=== PATIENT | female | born 1960 | race Caucasian/White ===

== ENCOUNTER 2021-12-20 14:21 | Emergency (ER) | payer BC, MEDICAID ==
[~2021-12-20] VITALS: Ht 165.1 cm; Wt 100.0 kg
[2021-12-20 14:57] LABS: BASOPHILS # (AUTO) 0.1 X10'3 (0-0.2); BASOPHILS % (AUTO) 1.2 % (0-1); EOSINOPHILS # (AUTO) 0.4 X10'3 (0-0.9); HEMATOCRIT 41.6 % (35.0-45.0); HEMOGLOBIN 14.6 g/dl (12.0-16.0); LYMPHOCYTES # (AUTO) 1.8 X10'3 (1.1-4.8); LYMPHOCYTES % (AUTO) 23.8 % (21-51); MEAN CORPUSCULAR HEMOGLOBIN 31.2 PG (27.0-31.0); MEAN CORPUSCULAR VOLUME 89.1 FL (78-98); MEAN PLATELET VOLUME 8.3 FL (7.4-10.4); MONOCYTES # (AUTO) 0.5 X10'3 (0-0.9); MONOCYTES % (AUTO) 6.4 % (2-12); NEUTROPHILS # (AUTO) 4.9 X10'3 (1.8-7.7); NEUTROPHILS % (AUTO) 63.6 % (42-75); PLATELET COUNT 204 X10'3 (140-440); RED BLOOD COUNT 4.66 X10'6 (4.20-5.60); RED CELL DISTRIBUTION WIDTH 12.6 % (11.5-14.5); WHITE BLOOD COUNT 7.7 X10'3 (4.5-11.0)
[2021-12-20 15:10] LABS: ALANINE AMINOTRANSFERASE 42 U/L (12-78); ALBUMIN 3.7 G/DL (3.4-5.0); ALBUMIN/GLOBULIN RATIO 1.1 (1.1-1.5); ALKALINE PHOSPHATASE 95 IU/L (46-116); ANION GAP 7 (8-16); ASPARTATE AMINO TRANSFERASE 24 U/L (10-37); BILIRUBIN,TOTAL 0.4 MG/DL (0.1-1.0); BLOOD UREA NITROGEN 17 MG/DL (7-18); CALCIUM 8.8 MG/DL (8.5-10.1); CHLORIDE 103 MMOL/L (99-107); CREATININE 1.42 MG/DL (0.40-0.90); GLUCOSE 220 MG/DL (70-104); LIPASE 107 U/L (73-393); POTASSIUM 4.3 MMOL/L (3.5-5.1); SODIUM 136 MMOL/L (135-145); TOTAL CARBON DIOXIDE 26.5 MMOL/L (24-32); TOTAL PROTEIN 7.1 G/DL (6.4-8.2); eGFR 37 ML/MIN
[2021-12-20] MEDS ORDERED: morphine 4 MG/ML inj SYRINge IM ONE (16:20)
[2021-12-20] MEDS ORDERED: ondansetron 4mg rapidly disintigrating tab PO ONE (16:20)
[2021-12-20 16:25] LABS: CLARITY,URINE CLOUDY (Clear); COLOR,URINE YELLOW (Yellow); GLUCOSE, URINE >=1000 mg/dl (Neg); KETONES,URINE NEGATIVE (Neg); LEUKOCYTE ESTERASE ,URINE SMALL (Neg); NITRITES, URINE POSITIVE (Neg); OCCULT BLOOD,URINE MODERATE (Neg); PH,URINE 5.5 (4.8-8.0); PROTEIN,URINE NEGATIVE (Neg); URINE HCG NEGATIVE (NEG); UROBILINOGEN,URINE 0.2 E.U/dL (0.2-1.0)
[2021-12-20 16:34] LABS: BACTERIA,URINE 4+ /HPF (Neg); MUCUS STRANDS NONE SEEN /LPF (Neg); SQUAMOUS EPITHELIAL CELL,UR MODERATE /LPF (FEW); WBC,URINE TNTC /HPF (0-4)
[2021-12-20 16:35] LABS: WBC CLUMPS,URINE MODERATE /HPF (NEGATIVE)
[2021-12-20 16:43] LABS: UA COLLECTION TYPE NON-SPECIFIED
[2021-12-20 17:49] VITALS: BP 112/56
[2021-12-20] MEDS ORDERED: HYDR-3965 PO (17:58)
[2021-12-20] MEDS ORDERED: ONDA4TAB12 PO (17:58)
[2021-12-20] MEDS ORDERED: AMOX-117 PO (17:58)
== END 2021-12-20 18:23 | disposition home or self-care (01) ==
LOC: ER 14:23
DX: K57.92 Diverticulitis of intestine, part unspecified, without perforation or abscess without bleeding (principal); N30.01 Acute cystitis with hematuria; Z79.899 Other long term (current) drug therapy
CPT/HCPCS: 36415; 74176; 76700; 80053; 81001; 81025; 83690; 85025; 87088; 96372; 99284; J2270; 87077; 87186

== ENCOUNTER 2022-02-11 16:01 | Emergency (ER) | payer BC, MEDICAID ==
[~2022-02-11] VITALS: Ht 165.1 cm; Wt 100.0 kg
[~2022-02-11 16:01] MED LIST: ONDA4TAB12 PO
[2022-02-11 17:32] LABS: URINE HCG NEGATIVE (NEG)
[2022-02-11 17:36] LABS: BASOPHILS # (AUTO) 0.1 X10'3 (0-0.2); BASOPHILS % (AUTO) 1.2 % (0-1); EOSINOPHILS # (AUTO) 0.5 X10'3 (0-0.9); EOSINOPHILS % (AUTO) 5.1 % (0-6); HEMATOCRIT 41.2 % (35.0-45.0); HEMOGLOBIN 14.5 g/dl (12.0-16.0); LYMPHOCYTES # (AUTO) 2.5 X10'3 (1.1-4.8); LYMPHOCYTES % (AUTO) 26.1 % (21-51); MEAN CORPUSCULAR HEMOGLOBIN 31.5 PG (27.0-31.0); MEAN CORPUSCULAR HGB CONC 35.2 g/dL (33.0-36.5); MEAN CORPUSCULAR VOLUME 89.6 FL (78-98); MEAN PLATELET VOLUME 8.5 FL (7.4-10.4); MONOCYTES # (AUTO) 0.7 X10'3 (0-0.9); MONOCYTES % (AUTO) 7.6 % (2-12); NEUTROPHILS # (AUTO) 5.8 X10'3 (1.8-7.7); PLATELET COUNT 247 X10'3 (140-440); RED CELL DISTRIBUTION WIDTH 12.9 % (11.5-14.5); WHITE BLOOD COUNT 9.6 X10'3 (4.5-11.0)
[2022-02-11 17:42] LABS: ALANINE AMINOTRANSFERASE 41 U/L (12-78); ALBUMIN/GLOBULIN RATIO 1.1 (1.1-1.5); ALKALINE PHOSPHATASE 84 IU/L (46-116); ANION GAP 9 (8-16); ASPARTATE AMINO TRANSFERASE 31 U/L (10-37); BILIRUBIN,TOTAL 0.4 MG/DL (0.1-1.0); BLOOD UREA NITROGEN 19 MG/DL (7-18); BUN/CREATININE RATIO 12.8 (6.6-38.0); CALCIUM 9.1 MG/DL (8.5-10.1); CHLORIDE 100 MMOL/L (99-107); CREATININE 1.49 MG/DL (0.40-0.90); GLUCOSE 104 MG/DL (70-104); LIPASE 123 U/L (73-393); SODIUM 137 MMOL/L (135-145); TOTAL CARBON DIOXIDE 28.4 MMOL/L (24-32); TOTAL PROTEIN 7.5 G/DL (6.4-8.2); eGFR 35 ML/MIN
[2022-02-11 17:45] LABS: CLARITY,URINE CLOUDY (Clear); COLOR,URINE YELLOW (Yellow); GLUCOSE, URINE >=1000 mg/dl (Neg); KETONES,URINE NEGATIVE (Neg); LEUKOCYTE ESTERASE ,URINE SMALL (Neg); NITRITES, URINE POSITIVE (Neg); OCCULT BLOOD,URINE SMALL (Neg); PROTEIN,URINE NEGATIVE (Neg); UROBILINOGEN,URINE 0.2 E.U/dL (0.2-1.0)
[2022-02-11 17:55] LABS: UA COLLECTION TYPE NON-SPECIFIED
[2022-02-11 18:08] LABS: BACTERIA,URINE 4+ /HPF (Neg); RBC,URINE 0-2 /HPF (0-2); SQUAMOUS EPITHELIAL CELL,UR MODERATE /LPF (FEW); WBC CLUMPS,URINE MODERATE /HPF (NEGATIVE)
[2022-02-11] MEDS ORDERED: sulfamethoxazole/trimethoprim DS (800/160mg) tablet PO ONE (18:55)
[2022-02-11] MEDS ORDERED: AMOX-117 PO (18:57)
[2022-02-11] MEDS ORDERED: ondansetron 4mg rapidly disintigrating tab PO ONE (19:00)
[2022-02-11] MEDS ORDERED: morphine 4 MG/ML inj SYRINge IM ONE (19:00)
[2022-02-11 19:43] VITALS: BP 122/74
== END 2022-02-11 19:45 | disposition home or self-care (01) ==
LOC: ER 16:01
DX: N39.0 Urinary tract infection, site not specified (principal); K52.9 Noninfective gastroenteritis and colitis, unspecified; R10.31 Right lower quadrant pain; R31.9 Hematuria, unspecified; Z79.2 Long term (current) use of antibiotics; Z79.899 Other long term (current) drug therapy
CPT/HCPCS: 36415; 74176; 80053; 81001; 81025; 83690; 85025; 87088; 96372; 99284; J2270; 87077; 87186

== ENCOUNTER 2022-03-26 15:39 | Emergency (ER) | payer BC, MEDICAID ==
[~2022-03-26] VITALS: Ht 165.1 cm; Wt 100.0 kg
[2022-03-26 16:39] LABS: URINE HCG NEGATIVE (NEG)
[2022-03-26 16:42] LABS: CLARITY,URINE CLOUDY (Clear); COLOR,URINE YELLOW (Yellow); GLUCOSE, URINE >=1000 mg/dl (Neg); KETONES,URINE TRACE mg/dl (Neg); LEUKOCYTE ESTERASE ,URINE NEGATIVE (Neg); NITRITES, URINE NEGATIVE (Neg); OCCULT BLOOD,URINE NEGATIVE (Neg); PH,URINE 5.5 (4.8-8.0); PROTEIN,URINE NEGATIVE (Neg); UROBILINOGEN,URINE 0.2 E.U/dL (0.2-1.0)
[2022-03-26 16:46] LABS: UA COLLECTION TYPE CLN CATCH MIDSTREAM
[2022-03-26 16:47] LABS: BASOPHILS # (AUTO) 0.1 X10'3 (0-0.2); BASOPHILS % (AUTO) 0.8 % (0-1); HEMATOCRIT 46.3 % (35.0-45.0); MEAN PLATELET VOLUME 8.9 FL (7.4-10.4)
[2022-03-26 16:48] LABS: EOSINOPHILS # (AUTO) 0.3 X10'3 (0-0.9); EOSINOPHILS % (AUTO) 1.9 % (0-6); LYMPHOCYTES # (AUTO) 3.5 X10'3 (1.1-4.8); LYMPHOCYTES % (AUTO) 22.9 % (21-51); MEAN CORPUSCULAR HEMOGLOBIN 31.1 PG (27.0-31.0); MEAN CORPUSCULAR HGB CONC 34.5 g/dL (33.0-36.5); MONOCYTES # (AUTO) 1.2 X10'3 (0-0.9); MONOCYTES % (AUTO) 8.1 % (2-12); NEUTROPHILS # (AUTO) 10.1 X10'3 (1.8-7.7); NEUTROPHILS % (AUTO) 66.3 % (42-75); PLATELET COUNT 330 X10'3 (140-440); RED BLOOD COUNT 5.15 X10'6 (4.20-5.60); RED CELL DISTRIBUTION WIDTH 12.8 % (11.5-14.5); WHITE BLOOD COUNT 15.2 X10'3 (4.5-11.0)
[2022-03-26 16:49] LABS: SQUAMOUS EPITHELIAL CELL,UR MANY /LPF (FEW)
[2022-03-26 16:50] LABS: ALANINE AMINOTRANSFERASE 54 U/L (12-78); ALBUMIN 4.2 G/DL (3.4-5.0); ALBUMIN/GLOBULIN RATIO 1.2 (1.1-1.5); ALKALINE PHOSPHATASE 95 IU/L (46-116); ANION GAP 12 (8-16); ASPARTATE AMINO TRANSFERASE 42 U/L (10-37); BILIRUBIN,TOTAL 0.5 MG/DL (0.1-1.0); BLOOD UREA NITROGEN 22 MG/DL (7-18); BUN/CREATININE RATIO 12.7 (6.6-38.0); CALCIUM 9.9 MG/DL (8.5-10.1); CHLORIDE 101 MMOL/L (99-107); CREATININE 1.73 MG/DL (0.40-0.90); GLUCOSE 191 MG/DL (70-104); LIPASE 105 U/L (73-393); POTASSIUM 3.7 MMOL/L (3.5-5.1); SODIUM 135 MMOL/L (135-145); TOTAL CARBON DIOXIDE 22.5 MMOL/L (24-32); TOTAL PROTEIN 7.8 G/DL (6.4-8.2); eGFR 30 ML/MIN
[2022-03-26 16:50] LABS: HYALINE CASTS 0-3 /LPF (NEGATIVE); MUCUS STRANDS FEW /LPF (Neg)
[2022-03-26 16:51] LABS: BACTERIA,URINE 2+ /HPF (Neg); RBC,URINE 0-2 /HPF (0-2); WBC,URINE 0-4 /HPF (0-4)
[2022-03-26] MEDS ORDERED: HYDROcodone/acetaminophen 5mg/325mg tablet PO ONE (19:10)
[2022-03-26] MEDS ORDERED: TRAM1TAB7 PO (19:12)
[2022-03-26] MEDS ORDERED: POLY119P2 PO (19:15)
[2022-03-26 19:28] VITALS: BP 132/89
== END 2022-03-26 19:29 | disposition home or self-care (01) ==
LOC: ER 15:40
DX: M54.50 Low back pain, unspecified (principal); K59.00 Constipation, unspecified; E11.9 Type 2 diabetes mellitus without complications; Z87.891 Personal history of nicotine dependence
CPT/HCPCS: 36415; 71045; 76700; 80053; 81001; 81025; 83690; 85025; 99285

== ENCOUNTER 2023-04-01 12:00 | Emergency (ER) | payer BC, MEDICAID ==
[~2023-04-01] VITALS: Ht 165.1 cm; Wt 99.3 kg
[~2023-04-01 12:00] MED LIST changes: +POLY119P2 PO
[2023-04-01] MEDS: oxyCODONE/APAP 5-325mg tablet PO ONE (18:58)
[2023-04-02 00:32] LABS: HEMATOCRIT 40.2 % (35.0-45.0); HEMOGLOBIN 13.9 g/dl (12.0-16.0); MEAN CORPUSCULAR HEMOGLOBIN 31.8 PG (27.0-31.0); MEAN CORPUSCULAR HGB CONC 34.5 g/dL (33.0-36.5); MEAN CORPUSCULAR VOLUME 92.2 FL (78-98); PLATELET COUNT 145 X10'3 (140-440); RED BLOOD COUNT 4.36 X10'6 (4.20-5.60); RED CELL DISTRIBUTION WIDTH 12.9 % (11.5-14.5); WHITE BLOOD COUNT 6.5 X10'3 (4.5-11.0)
[2023-04-02 00:33] LABS: BASOPHILS # (AUTO) 0.1 X10'3 (0-0.2); EOSINOPHILS # (AUTO) 0.2 X10'3 (0-0.9); EOSINOPHILS % (AUTO) 2.7 % (0-6); LYMPHOCYTES # (AUTO) 1.6 X10'3 (1.1-4.8); LYMPHOCYTES % (AUTO) 24.2 % (21-51); MEAN PLATELET VOLUME 7.9 FL (7.4-10.4); MONOCYTES # (AUTO) 0.7 X10'3 (0-0.9); MONOCYTES % (AUTO) 10.4 % (2-12); NEUTROPHILS % (AUTO) 61.7 % (42-75)
[2023-04-02] MEDS ORDERED: oxyCODONE/APAP 5-325mg tablet PO ONE ×3 (00:45→01:10)
[2023-04-02 00:50] LABS: ALANINE AMINOTRANSFERASE 50 U/L (12-78); ALBUMIN 3.6 G/DL (3.4-5.0); ALBUMIN/GLOBULIN RATIO 1.1 (1.1-1.5); ALKALINE PHOSPHATASE 63 IU/L (46-116); ANION GAP 9 (8-16); ASPARTATE AMINO TRANSFERASE 34 U/L (10-37); BILIRUBIN,TOTAL 0.8 MG/DL (0.1-1.0); BLOOD UREA NITROGEN 16 MG/DL (7-18); BUN/CREATININE RATIO 11.6 (10.0-20.0); CALCIUM 8.5 MG/DL (8.5-10.1); CHLORIDE 103 MMOL/L (99-107); CREATININE 1.38 MG/DL (0.40-0.90); GLUCOSE 167 MG/DL (70-104); POTASSIUM 3.7 MMOL/L (3.5-5.1); SODIUM 140 MMOL/L (135-145); TOTAL CARBON DIOXIDE 28.1 MMOL/L (24-32); eCRCL 37 ML/MIN; eGFR 38 ML/MIN
[2023-04-02] MEDS: oxyCODONE/APAP 5-325mg tablet PO ONE (01:26)
[2023-04-02 01:34] LABS: BILIRUBIN,URINE NEGATIVE (Neg); CLARITY,URINE CLOUDY (Clear); COLOR,URINE STRAW (Yellow); GLUCOSE, URINE 250 mg/dl (Neg); KETONES,URINE NEGATIVE (Neg); LEUKOCYTE ESTERASE ,URINE SMALL (Neg); NITRITES, URINE POSITIVE (Neg); OCCULT BLOOD,URINE SMALL (Neg); PROTEIN,URINE NEGATIVE (Neg); UROBILINOGEN,URINE 0.2 E.U/dL (0.2-1.0)
[2023-04-02 01:45] LABS: UA COLLECTION TYPE CLN CATCH MIDSTREAM
[2023-04-02 02:09] LABS: SQUAMOUS EPITHELIAL CELL,UR MANY /LPF (FEW)
[2023-04-02 02:10] LABS: BACTERIA,URINE 3+ /HPF (Neg); WBC,URINE 50-100 /HPF (0-4)
[2023-04-02 02:58] LABS: APTT 29 SECONDS (22-32); PROTHROMBIN TIME 10.9 SECONDS (9.0-12.0)
[2023-04-02 04:04] VITALS: TEMP 98.6
[2023-04-02] MEDS: morphine 2 MG/ML inj. syringe IV PRN (07:27)
[2023-04-02] MEDS: levetiracetam inj 1,000 MG in normal saline 100ml IV soln 100 ML IV ONE (08:15)
[2023-04-02] MEDS: oxyCODONE IR 5mg (immed. release) tablet PO ONE (13:31)
[2023-04-02] MEDS ORDERED: LEVO250T74 PO (14:54)
[2023-04-02 15:45] VITALS: BP 117/72; PULSE 79; RESP 16; O2SAT 95
== END 2023-04-02 15:45 | disposition home or self-care (01) ==
LOC: ER 12:00
DX: S06.0X0A Concussion without loss of consciousness, initial encounter (principal); S00.01XA Abrasion of scalp, initial encounter; N39.0 Urinary tract infection, site not specified; E11.9 Type 2 diabetes mellitus without complications; R79.1 Abnormal coagulation profile; Z79.2 Long term (current) use of antibiotics; Z79.899 Other long term (current) drug therapy; W19.XXXA Unspecified fall, initial encounter; Y93.89 Activity, other specified; Y92.89 Other specified places as the place of occurrence of the external cause; Y99.8 Other external cause status
CPT/HCPCS: 36415; 70450; 72125; 73030; 73610; 80053; 81001; 82948; 84484; 85025; 85610; 85730; 96365; 96375; 99291; J1953; J2270; J3490

== ENCOUNTER 2024-01-04 12:52 | Emergency (ER) | payer BC, MEDICAID ==
[~2024-01-04] VITALS: Ht 165.1 cm; Wt 95.5 kg
[~2024-01-04 12:52] MED LIST changes: +ONDA-243 PO; -ONDA4TAB12 PO
[2024-01-04 12:54] VITALS: TEMP 98.1
[2024-01-04 13:42] LABS: BASOPHILS # (AUTO) 0.1 X10'3 (0-0.2); BASOPHILS % (AUTO) 0.9 % (0-1); EOSINOPHILS # (AUTO) 0.2 X10'3 (0-0.9); EOSINOPHILS % (AUTO) 3.2 % (0-6); HEMATOCRIT 41.2 % (35.0-45.0); HEMOGLOBIN 14.3 g/dl (12.0-16.0); LYMPHOCYTES # (AUTO) 1.8 X10'3 (1.1-4.8); LYMPHOCYTES % (AUTO) 28.6 % (21-51); MEAN CORPUSCULAR HEMOGLOBIN 32.3 PG (27.0-31.0); MEAN CORPUSCULAR HGB CONC 34.8 g/dL (33.0-36.5); MEAN CORPUSCULAR VOLUME 92.9 FL (78-98); MONOCYTES # (AUTO) 0.4 X10'3 (0-0.9); MONOCYTES % (AUTO) 6.9 % (2-12); NEUTROPHILS # (AUTO) 3.9 X10'3 (1.8-7.7); NEUTROPHILS % (AUTO) 60.4 % (42-75); PLATELET COUNT 213 X10'3 (140-440); RED BLOOD COUNT 4.43 X10'6 (4.20-5.60); WHITE BLOOD COUNT 6.4 X10'3 (4.5-11.0)
[2024-01-04 13:58] LABS: ALANINE AMINOTRANSFERASE 64 U/L (12-78); ALBUMIN 3.8 G/DL (3.4-5.0); ALBUMIN/GLOBULIN RATIO 1.2 (1.1-1.5); ALKALINE PHOSPHATASE 92 IU/L (46-116); ANION GAP 6 (8-16); ASPARTATE AMINO TRANSFERASE 51 U/L (10-37); BILIRUBIN,TOTAL 0.5 MG/DL (0.1-1.0); BLOOD UREA NITROGEN 21 MG/DL (7-18); BUN/CREATININE RATIO 12.7 (10.0-20.0); CALCIUM 8.2 MG/DL (8.5-10.1); CHLORIDE 100 MMOL/L (99-107); CREATININE 1.66 MG/DL (0.40-0.90); GLUCOSE 303 MG/DL (70-104); LIPASE 48 U/L (16-77); POTASSIUM 4.1 MMOL/L (3.5-5.1); SODIUM 134 MMOL/L (135-145); TOTAL CARBON DIOXIDE 27.8 MMOL/L (24-32); TOTAL PROTEIN 7.1 G/DL (6.4-8.2); eCRCL 30 ML/MIN; eGFR 31 ML/MIN
[2024-01-04 14:33] LABS: URINE HCG NEGATIVE (NEG)
[2024-01-04 14:35] LABS: BILIRUBIN,URINE NEGATIVE (Neg); CLARITY,URINE SLIGHTLY CLOUDY (Clear); COLOR,URINE STRAW (Yellow); GLUCOSE, URINE >=1000 mg/dl (Neg); KETONES,URINE NEGATIVE (Neg); LEUKOCYTE ESTERASE ,URINE TRACE (Neg); NITRITES, URINE POSITIVE (Neg); OCCULT BLOOD,URINE NEGATIVE (Neg); PROTEIN,URINE NEGATIVE (Neg); UROBILINOGEN,URINE 0.2 E.U/dL (0.2-1.0)
[2024-01-04 14:48] LABS: UA COLLECTION TYPE CLN CATCH MIDSTREAM
[2024-01-04 14:50] LABS: BACTERIA,URINE 4+ /HPF (Neg); RBC,URINE NONE SEEN /HPF (0-2); SQUAMOUS EPITHELIAL CELL,UR FEW /LPF (FEW); WBC CLUMPS,URINE FEW /HPF (NEGATIVE); WBC,URINE 50-100 /HPF (0-4)
[2024-01-04] MEDS: phenazopyridine 100mg tablet PO ONE (15:05)
[2024-01-04] MEDS: CefTRIAXone 1000mg IM Kit (w/lidocaine diluent) IM ONE (15:13)
[2024-01-04] MEDS ORDERED: PHEN-716 PO (15:15)
[2024-01-04] MEDS ORDERED: CEPH-585 PO (15:15)
[2024-01-04 15:53] VITALS: BP 149/98; PULSE 89; RESP 18; O2SAT 94
== END 2024-01-04 15:56 | disposition home or self-care (01) ==
LOC: ER 12:53
DX: N39.0 Urinary tract infection, site not specified (principal); E11.9 Type 2 diabetes mellitus without complications; Z79.899 Other long term (current) drug therapy
CPT/HCPCS: 36415; 76700; 80053; 81001; 81025; 83690; 85025; 87088; 96372; 99285; J0696; 87077; 87186

== ENCOUNTER 2024-06-26 16:27 | Emergency (ER) | payer MEDICARE, MEDICAID ==
[~2024-06-26] VITALS: Ht 165.1 cm; Wt 98.0 kg
[~2024-06-26 16:27] MED LIST changes: +PHEN-716 PO
[2024-06-26 16:28] VITALS: BP 122/83; PULSE 78; RESP 16; O2SAT 97
[2024-06-26] MEDS ORDERED: HYDR-3686 PO (17:21)
--- NOTE | 2024-06-26 17:21 | Physician Documentation ---
History of Present Illness General Chief Complaint: Rash Stated Complaint: RASH Time Seen by MD: 16:43 Primary Medical Doctor: [facility] History of Present Illness Initial Comments 63-year-old female insulin-dependent diabetic presents to the Emergency primarily with a intensely pruritic rash to oral area without a intraoral swelling or dysphagia. Patient reports a rashes. In the past and again is resurface. It is intensely pruritic without vesicles or bullae. She was apply some topical steroid were she reports has mild relief. It is not of malar type distribution. Medication Reconciliation Allergies: Coded Allergies: No Known Allergies (Unverified , 12/20/21) Scheduled Hydroxyzine Hcl* (Atarax*), 1 TAB PO Q8H ONDANSETRON ODT 4mg tablet (Ondansetron Odt), 1 TABLET PO Q6H Phenazopyridine HCl (Pyridium), 1 TAB PO Q8H Scheduled PRN Polyethylene Glycol 3350 (Miralax), 17 GM PO DAILY PRN for constipation Past Medical History Past Medical History: Diverticulitis, UTI, Diabetes Past Surgical History: noncontributory Smoking: Non-Smoker Alcohol Use: None Drug Use: none Lives with: Family Lives In: Home Review of Systems All Other Systems at this time: Reviewed and Negative Constitutional: Denies: fever, chills RESP: Denies: short of breath, cough CV: Denies: chest pain, palpitations Musc: Denies: joint pain, joint swelling Integ: Reports: rash, itching Physical Exam Physical Exam Vital Signs: RN Vital Signs have been reviewed: Yes, Temperature: 99.2, Source: Oral, Heart Rate: 78, Respiratory Rate: 16, BP: 122/83, Pulse Oximetry: 97, Weight: 98.000 Oxygen Flow Rate: 0 General Appearance: alert, WD/WN, mild distress Head: normal inspection Face: other (Hyperemia that is circumferential from the nares to the chin.) Pupils/EOM/Fundus: PERRLA Ear: auricle normal Nose: normal inspection Oropharynx: normal inspection Neck: non-tender Respiratory: lungs clear Extremities: normal range of motion Neurologic: oriented x4 Motor / Sensory: no motor deficit Psychiatric: normal mood/affect Skin: normal color, rash Progress Results/Orders Results/Orders Completed Orders - LILIBETH SANTOYO PAC Triamcinolone Acet 40mg/Ml Inj (Kenalog- (06/26/24 17:25) Vital Signs 06/26/24 16:28 Temp 99.2 Pulse 78 Resp 16 B/P (MAP) 122/83 Pulse Ox 97 O2 Flow Rate 0 Medical Decision Making Differential Diagnosis 63-year-old female insulin-dependent diabetic with suspected hypersensitivity rash that does not appear to be autoimmune in etiology. Shared decision-making to provide a single dose of Kenalog. Patient counseled on blood sugars in the need to adjust insulin appropriately. He was discharged with a prescription for hydroxyzine and the importance of follow up with the primary care and d ermatology if not better. No clinical suspicion for angioedema, lid wounds angina or anaphylaxis. I Departure Disposition: HOME / SELF CARE / HOMELESS Impression: Primary Impression: Facial rash Condition: Stable Discharge Instructions: Pruritus Additional Instructions: Today in the emergency department you received an injection for Kenalog for suspected hypersensitivity reaction to face. Please follow up with the primary care physician for additional follow up if no resolution. Referrals: NO PRIMARY CARE PROVIDER (PCP) Prescriptions Hydroxyzine Hcl* (Atarax*) 25 Mg Tablet 1 TAB PO Q8H for anxiety for 10 Days, #30 TAB Prov: LILIBETH SANTOYO 06/26/24 Education Educated: Patient Educated regarding: diagnosis, treatment Signature Scribe Signature: . Attestation: . LILIBETH SANTOYO June 26, 2024 17:21
[2024-06-26] MEDS: triamcinolone acetonide 40mg/ml inj IM ONE (18:23)
[2024-06-26 18:28] VITALS: TEMP 99.2
== END 2024-06-26 18:29 | disposition home or self-care (01) ==
LOC: ER 16:27
DX: R21 Rash and other nonspecific skin eruption (principal); E11.9 Type 2 diabetes mellitus without complications
CPT/HCPCS: 96372; 99283; J3301

== ENCOUNTER 2024-08-15 05:00 | Emergency (ER) | payer MEDICARE, MEDICAID ==
[~2024-08-15] VITALS: Ht 160 cm; Wt 87.6 kg
[2024-08-15 05:05] VITALS: BP 145/65; PULSE 72; RESP 15; TEMP 96.8; O2SAT 97
--- NOTE | 2024-08-15 09:29 | Physician Documentation ---
History of Present Illness ~ Chief Complaint: Rash Stated Complaint: FACE RASH Time Seen by MD: 09:39 Primary Medical Doctor: [facility] HPI This is a 63-year-old female who presents with two days of progressively worsening perioral erythema and excoriation without swelling or involvement of the mucous membrane. Patient describes the area as itchy and painful. Patient reports no known allergies though reports similar episode approximately 6-7 weeks prior which she was seen at this facility, at that time received a Kenalog injection for per review of records. Patient reports no fever. Patient reports no difficulty breathing or swallowing. Medication Reconciliation Allergies: Coded Allergies: No Known Allergies (Unverified , 12/20/21) Scheduled Cephalexin*Monohydrate* (Keflex*), 1 CAP PO QID ONDANSETRON ODT 4mg tablet (Ondansetron Odt), 1 TABLET PO Q6H Phenazopyridine HCl (Pyridium), 1 TAB PO Q8H Scheduled PRN Polyethylene Glycol 3350 (Miralax), 17 GM PO DAILY PRN for constipation Past Medical History Past Medical History: Diverticulitis, UTI, Diabetes Past Surgical History: noncontributory Alcohol Use: None Drug Use: none Lives with: Family Lives In: Home Review of Systems ROS Rash around mouth as stated above in the HPI, otherwise all systems are reviewed and negative. Physical Exam Vital Signs: Temperature: 96.8, Source: Temporal, Heart Rate: 72, Respiratory Rate: 15, BP: 145/65, Pulse Oximetry: 97, Weight: 87.600 Physical Exam VITALS: Reviewed and as above. GENERAL: Alert, nontoxic appearing, no apparent distress. HEENT: No facial swelling, no periorbital erythema RESPIRATORY: No increased work of breathing, no respiratory distress, speaking in full clear sentences SKIN: Perioral erythema without swelling, bullae, or blisters and not involving mucous membranes, tender to touch, no exudates Progress Results/Orders Results/Orders Vital Signs 08/15/24 05:05 Temp 96.8 Pulse 72 Resp 15 B/P (MAP) 145/65 Pulse Ox 97 Medical Decision Making Findings This 63-year-old female presented with two days of well demarcated perioral erythema that did not involve mucous membranes, area was described as painful and itchy", physical exam reassuring with no swelling, blisters, or bullae, due to a well demarcated nature do suspect this to be erysipelas over cellulitis, patient has been previously treated for allergic dermatitis in the area though appearance better fits with infective process given patient reporting no recent allergen exposures. Patient is noted to have chapped and cracked lips and is observed frequently licking perioral area which may serve as a source of possible infection. Remainder of physical exam was benign and patient is otherwise well-appearing with stable vital signs, patient is appropriate for outpatient follow up and will be treated outpatient with course of oral antibiotics, patient has been instructed follow up in the next few days with her primary care provider for recheck. There is no evidence of rapidly progressing symptoms, crepitus, pain out of prop ortion, pain away from site or other signs/symptoms concerning for necrotizing fasciitis or myositis. No mucosal involvement, blisters or bullae, sloughing skin, or appearance concerning for SJS, TEN, SSSS, pemphigus vulgaris, or bullous pemphigoid. No airway compromise, angioedema or systemic signs/symptoms concerning for anaphylaxis. Patient given strict return precautions including rapidly progressing symptoms, pain out of proportion/severe pain, mucosal involvement, and/or fever>100.4. Differential Dx:Considerations: Include: Abscess, Atopic dermatitis, Candidiasis, Contact dermatitis, Drug reaction, Herpes zoster, Herpes simplex, Rosacea, Tinea, Urticaria Departure Disposition: 01 HOME / SELF CARE / HOMELESS Impression: Primary Impression: Erysipelas of face Condition: Improved Discharge Instructions: Erysipelas Additional Instructions: It appears you have a skin infection, the steroid shot we will likely not help this, and may make it worse. I prescribed you a course of antibiotics, please take them as prescribed. Please follow up with your primary care provider in the next few days. Please return to the emergency department for any new or worsening concerning symptoms. Referrals: NO PRIMARY CARE PROVIDER (PCP) Prescriptions Cephalexin*Monohydrate* (Keflex*) 500 Mg Capsule 1 CAP PO QID for 5 Days, #20 CAP Please return to the emergency department if your symptoms do not improve or if they worsen. Prov: SHAUN LARIOS 08/15/24 Education Educated: Patient Educated regarding: diagnosis, treatment, prognosis, need for follow up Signature Scribe Signature: No scribe Attestation: The note accurately reflects work and decisions made by me.BROCK Silva 08/15/24 20:25 SHAUN LARIOS Aug 15, 2024 09:29
[2024-08-15] MEDS ORDERED: CEPH-585 PO (10:40)
== END 2024-08-15 10:46 | disposition home or self-care (01) ==
LOC: ER 05:01
DX: A46 Erysipelas (principal); E11.9 Type 2 diabetes mellitus without complications
CPT/HCPCS: 99283

== ENCOUNTER 2024-08-19 22:30 | Emergency (ER) | payer MEDICARE, MEDICAID ==
[~2024-08-19] VITALS: Ht 165.1 cm; Wt 100.2 kg
[~2024-08-19 22:30] MED LIST changes: +CEPH-585 PO
[2024-08-19 22:40] VITALS: BP 144/80; PULSE 88; RESP 17; O2SAT 99
--- NOTE | 2024-08-19 23:06 | Physician Documentation ---
History of Present Illness ~ Chief Complaint: Rash Stated Complaint: RASH Time Seen by MD: 22:50 Primary Medical Doctor: [facility] HPI This 63-year-old female presents to the ED with ongoing facial rash complaints. She was recently diagnosed with a erysipelas and prescribed antibiotics. However the patient has persistent symptoms which includes a painful itchy rash. Day of Onset: Aug 19, 2024 Medication Reconciliation Allergies: Coded Allergies: No Known Allergies (Unverified , 08/19/24) Scheduled Cephalexin*Monohydrate* (Keflex*), 1 CAP PO QID ONDANSETRON ODT 4mg tablet (Ondansetron Odt), 1 TABLET PO Q6H Phenazopyridine HCl (Pyridium), 1 TAB PO Q8H Scheduled PRN Polyethylene Glycol 3350 (Miralax), 17 GM PO DAILY PRN for constipation Past Medical History Past Medical History: Diverticulitis, UTI, Diabetes Past Surgical History: noncontributory Alcohol Use: None Drug Use: none Lives with: Family Lives In: Home Review of Systems All Other Systems at this time: Reviewed and Negative ROS As stated above in the HPI, otherwise all systems are reviewed and negative. Physical Exam Vital Signs: Temperature: 98.6, Heart Rate: 88, Respiratory Rate: 17, BP: 144/80, Pulse Oximetry: 99, Weight: 100.200 Physical Exam General: Alert, no apparent distress. HEENT: PERRL, EOMI, no injection, moist mucous membranes. erythema surrounding nose and mouth, Neck: Full range of motion. Respiratory: Lungs clear, no respiratory distress. Progress Results/Orders Results/Orders Completed Orders - FILIBERTO BEY NP Triamcinolone Acet 40mg/Ml Inj (Kenalog- (08/19/24 23:00) Vital Signs 08/19/24 22:40 Temp 98.6 Pulse 88 Resp 17 B/P (MAP) 144/80 Pulse Ox 99 Medical Decision Making Findings Suturing patient has been treated for bacterial infection, I am suspecting fungal. Going to prescribe her both a Kenalog to help with the symptoms and I am going to prescribe terbinafine antifungal Differential Dx:Considerations: Include: Abscess, AIDS/HIV, Anthrax (cutaneous), Atopic dermatitis, Candidiasis, Contact dermatitis, Drug reaction, Erythema multiforme, Erysipelas, Gangrene, Herpes zoster, Herpes simplex, Hidradenitis suppurativa, Impetigo, Intertrigo, Lymes disease, Molluscum contagiosum, Osteomyelitis, Pediculosis, Pityriasis rosea, Psoriaisis, RMSF, Rosacea, Scabies, Scarlet fever, Tinea, Urticaria, Varicella, Viral exanthema, Other Departure Disposition: HOME / SELF CARE / HOMELESS Impression: Primary Impression: Urticaria Additional Impressions: Skin irritation Facial rash Discharge Instructions: Contact Dermatitis Referrals: NO PRIMARY CARE PROVIDER (PCP) Prescriptions Clotrimazole (Clotrimazole 3) 2 % Cream.appl 1 APPLICATOR VG BID for 3 Days, #21 GM 0 Refills Prov: FILIBERTO BEY NP 08/19/24 Signature Scribe Signature: r Attestation: Scribed for Filiberto Bey Aircraft Maintenance Supervisor by Filiberto Bell NP . 08/19/24 23:11 FILIBERTO BEY NP Aug 19, 2024 23:06
[2024-08-19] MEDS ORDERED: CLOT21CR7 VG (23:11)
[2024-08-19] MEDS: clotrimazole topical cream 15gm tube TP SCH (23:15)
[2024-08-19] MEDS: triamcinolone acetonide 40mg/ml inj IM ONE (23:20)
[2024-08-19 23:26] VITALS: TEMP 98.6
== END 2024-08-19 23:27 | disposition home or self-care (01) ==
LOC: ER 22:30
DX: L50.9 Urticaria, unspecified (principal); E11.9 Type 2 diabetes mellitus without complications
CPT/HCPCS: 96372; 99283; J3301